=== PATIENT | female | born 1995 | race Caucasian/White ===

== ENCOUNTER 2016-03-15 05:17 | Day surgery (SDC) | payer OTHER ==
[2016-03-09 10:48] LABS: HEMATOCRIT 42.8 % (36.0-47.0); HEMOGLOBIN 14.5 g/dL (12.0-15.5); HGB HCT DIFFERENCE 0.7; MEAN CORPUSCULAR HEMOGLOBIN 32.2 pg (27.0-33.4); MEAN CORPUSCULAR HGB CONC 33.9 g/dL (32.0-36.0); MEAN CORPUSCULAR VOLUME 95 fl (80-97); RED BLOOD COUNT 4.51 10^6/uL (3.72-5.28); WHITE BLOOD COUNT 3.1 10^3/uL (4.0-10.5)
[2016-03-09 11:04] LABS: APPEARANCE,URINE SLIGHTLY-CLOUDY; BILIRUBIN,URINE NEGATIVE (NEGATIVE); GLUCOSE, URINE NEGATIVE (NEGATIVE); KETONES,URINE NEGATIVE (NEGATIVE); LEUKOCYTE ESTERASE,URINE NEGATIVE (NEGATIVE); NITRITE,URINE NEGATIVE (NEGATIVE); PROTEIN,URINE NEGATIVE (NEGATIVE); URINE SPECIFIC GRAVITY 1.009; UROBILINOGEN,URINE NEGATIVE mg/dL (<2.0)
[2016-03-09 11:22] LABS: ANION GAP 12 (5-19); BLOOD UREA NITROGEN 8 mg/dL (7-20); CALCIUM 9.1 mg/dL (8.4-10.2); CARBON DIOXIDE 27 mmol/L (22-30); CHLORIDE 104 mmol/L (98-107); CREATININE RESULT 0.55 mg/dL (0.52-1.25); GLUCOSE 49 mg/dL (75-110); POTASSIUM 3.9 mmol/L (3.6-5.0); SODIUM 143.1 mmol/L (137-145)
[~2016-03-15 05:17] MED LIST: CEFAZOLIN 2 GM/D5W RTU 2 GM/50 ML RTUPB IV PRN; CEFAZOLIN SODIUM 2 GM in DEXTROSE 5%-WATER 100 ML IV PRN; LACTATED RINGERS 1000 ML IV PRN; LIDOCAINE 0.5% INJ-PF (5 MG/ML) 50 ML SDV SUBCUT PRN
[2016-03-15] MEDS ORDERED: BUPIVACAINE HCL 0.5 % INJ/PF 30 ML SDV ONE (06:23)
[2016-03-15] MEDS ORDERED: EPINEPHRINE INJ/PF 1 MG/1 ML AMPULE ONE (06:25)
[2016-03-15] MEDS ORDERED: HYDROMORPHONE HCL INJ/PF 2 MG/ML AMPULE ONE (07:04)
[2016-03-15] MEDS ORDERED: FENTANYL CITRATE INJ/PF 100 MCG/2 ML AMPUL ONE (07:04)
[2016-03-15] MEDS ORDERED: FENTANYL CITRATE INJ/PF 250 MCG/5 ML AMPULE ONE (07:04)
[2016-03-15] MEDS ORDERED: ACETAMINOPHEN 100 ML IV ONE (07:05)
[2016-03-15] MEDS ORDERED: PROPOFOL INJ 200 MG/20 ML VIAL IV ONE (07:05)
[2016-03-15] MEDS ORDERED: MIDAZOLAM 2 MG/2 ML INJ ONE (07:05)
[2016-03-15] MEDS ORDERED: FENTANYL CITRATE INJ/PF 100 MCG/2 ML AMPUL IV PRN ×3 (10:40)
[2016-03-15] MEDS ORDERED: MEPERIDINE HCL/PF INJ 25 MG/1 ML DISP.SYRIN IV PRN (10:40)
[2016-03-15] MEDS ORDERED: MORPHINE SULFATE 10 MG/ML INJ IV PRN (10:40)
[2016-03-15] MEDS ORDERED: DIPHENHYDRAMINE HCL 50 MG/ML VIAL IV PRN (10:40)
[2016-03-15] MEDS ORDERED: OXYCODONE-ACETAMINOPHEN 5-325 MG TABLET PO PRN ×4 (10:40→11:23)
[2016-03-15] MEDS ORDERED: PROMETHAZINE HCL INJ 25 MG/1 ML VIAL IV PRN ×2 (10:40)
[2016-03-15] MEDS: FENTANYL CITRATE INJ/PF 100 MCG/2 ML AMPUL ONE ×2 (11:20→11:25)
--- NOTE | 2016-03-15 11:20 | Operative Report ---
Operative Report DATE OF SURGERY: 03/15/16 PREOPERATIVE DIAGNOSIS: Left hip acetabular labral tear and femoral acetabular impingement POSTOPERATIVE DIAGNOSIS: Same OPERATION: Left hip arthroscopy with labral repair. Femoroplasty. Fractional lengthening of the iliopsoas tendon SURGEON: LALIT CAMERON ANESTHESIA: GA TISSUE REMOVED OR ALTERED: None COMPLICATIONS: None ESTIMATED BLOOD LOSS: 15 mL INTRAOPERATIVE FINDINGS: As above PROCEDURE: Patient was brought to the operating room. The patient was induced and intubated in supine position. IV antibiotics were given prior to entering the OR. Boots were placed on both lower extremities. Peroneal post was applied and the patient was brought down to the perineal post. Both extremities were securing and the hip distraction system. At this point traction was placed in both extremities. C-arm was used to guide us and allow us to dislocate the left hip successfully. Once sedated gross traction and then gentle traction and confirm a dislocation under C-arm I started the time her the right lower extremity was taken off of gross traction. This point the left hip was prepped and draped in a normal sterile surgical fashion. Timeout was done identifying the left hip as the correct site. With the use of C-arm I placed a spinal needle and the anticipated anterolateral portal site. Once I felt that I piercing the capsule, I inflated the capsule with air using a 60 mL sterile syringe, this was showing proper placement intra-articularly. I this point I placed a nitinol wire and removed the spinal needle. I proceeded to dilate appropriately after using a scalpel to do a incision establish a my portal site. Camera then was introduced and under direct visualization proceeded to use a spinal needle to status my anterior portal site. I marked the ASIS and the midline in the midportion of the thigh to make sure that we were on the lateral aspect of the spine to avoid any neurovascular structures. Once I pursue Sloughing directly visualize a spinal needle and proceeded to use the same technique of placing nitinol wire, removed the needle and then proceeded to dilate the capsule after establishing the portal site with a scalpel. At this point I proceeded to do my arthrotomy using a retractable [place] blade. I proceeded to use switching sticks to changed my camera to the anterior portal and allowing to do complete my arthrotomy from the anterolateral portal using the retractable [place] blade. At this point once the arthrotomy was completed I proceeded to do my diagnostic arthroscopy. I immediately noticed the superior labral tear and used a probe to visualize the size. I used a [place] blade then to detach the labrum from the superior portion and clean off the rim of the acetabulum. This was done with a shaver. I used a 50 radiofrequency ablator to then clear and jigna the superior rim of the acetabulum and visualized anchor placement. I used a 90 lasso to then show a FiberWire underneath the labrum and capture on the other side. I used a clot to then grab the limbs and make sure there was no tissue bridge and then fed through a anchor. I use my guide to place position of the drill and then while drilling made sure that there was no perforation of bulging in the articulation of the acetabulum. I removed the guide and then placed my anchor securing the FiberWire and labrum onto the rim. Used a arthroscopic cutter to then leave a small tail. I repeated this step with another anchor more superior and posterior. I used approved after securing both anchors and was happy with the fixation and tightness of the repair. Remaining acetabular rim and labrum was visualized and was pristine. There is no loose bodies. No chondral delamination or lesions noted. At this point traction was let go and the head of the femur set and the acetabulum and noted good seal and no impingement of the repair. Quickly and noted to see a lesion on the femoral neck and head junction clear lesion showing the abutment of the femoral neck and head junction with the rim that was just adjacent to the labral tear. I used a oval bur then to do my femoral plasty starting at this lesion and then split out the resection both more anterior more posterior and then distal on the neck. C-arm was used to guide the amount of resection. Once I was satisfied with the resection of the lesion I then proceeded to close the capsule using the capsular closure device which punctured FiberWire through each ends of the capsule. I did it twice. I was able to then do arthroscopic knots and secure at least the more anterior portion of the capsule. Pictures were taken showing partial closure. Once I was satisfied fluid was removed and the insurance were removed and the portal sites were closed with 3-0 nylon. Xeroform 4 x 4 dressing followed by an AVD pad were applied and then Medipore tape was used to secure it. Drapes were removed and the patient was extubated and sent to PACU in stable condition.
--- NOTE | 2016-03-15 11:23 | PDOC DISCHARGE SUMMARY ---
Discharge Summary (SDC) - Discharge Final Diagnosis: Left hip femoral acetabular impingement and acetabular labral tear Date of Surgery: 03/15/16 Discharge Date: 03/15/16 Condition: Good Treatment or Instructions: Patient instructed to follow up in 10-14 days. Patient instructed to keep dressing dry clean and intact for 4 days and then allowed to remove. At that point patient can shower and apply Band-Aids as needed. Patient can do range of motion as tolerated. Avoid external rotation of the operative hip. Toe-touch weightbearing with crutches 6 weeks Patient instructed to call the office if patient develops fevers chills redness and drainage from the surgical sites. Prescriptions: Oxycodone HCl/Acetaminophen [Percocet 5-325 mg Tablet] 1 - 2 tab PO ASDIR PRN # 60 tablet PRN Reason: Respiratory Treatments at Home: Deep Breathing/Coughing Discharge Activity: No Driving - While taking narcotics, No Lifting/Push/Pulling Adaptive Devices on Discharge: Standard Walker Report the Following to Your Physician Immediately: Vomiting, Increase in Pain, Fever over 101 Degrees, Unusual Bleeding, Swelling, Warmth, Drainage-Yellow, Drainage-Green, Drainage-Foul Smelling
[2016-03-15] MEDS ORDERED: VECURONIUM BROMIDE INJ 10 MG VIAL IV ONE (11:53)
[2016-03-15] MEDS ORDERED: DEXAMETHASONE SOD PHOSPHATE INJ 4 MG/1 ML VIAL ONE (11:53)
[2016-03-15] MEDS ORDERED: LIDOCAINE 2% INJ-PF (20 MG/ML) 10 ML AMPUL ONE (11:53)
[2016-03-15] MEDS ORDERED: SUCCINYLCHOLINE CHLORIDE INJ 200 MG/10 ML VIAL ONE (11:53)
[2016-03-15] MEDS ORDERED: ONDANSETRON HCL INJ/PF 4 MG/2 ML SDV ONE ×2 (11:53→12:30)
[2016-03-15 13:42] VITALS: BP 114/75
[2016-03-15] MEDS ORDERED: ONDANSETRON HCL INJ/PF 4 MG/2 ML SDV IV SCH (18:00)
== END 2016-03-15 13:37 | disposition home or self-care (01) ==
LOC: OROUT 05:17
PROVIDERS: ATTEND Orthopaedic Surgery
PROC: 0L8K4ZZ Division of Left Hip Tendon, Percutaneous Endoscopic Approach (ICD-10-PCS; 2016-03-15)
PROC: 0SQB4ZZ Repair Left Hip Joint, Percutaneous Endoscopic Approach (ICD-10-PCS; principal; 2016-03-15 07:30)
DX: M25.852 Other specified joint disorders, left hip (principal); M24.152 Other articular cartilage disorders, left hip; M24.852 Other specific joint derangements of left hip, not elsewhere classified; M47.9 Spondylosis, unspecified; Z79.899 Other long term (current) drug therapy
CPT/HCPCS: 36415; 82962; 85027; 81025; 80048; 81001; 73501; 29914; 27299; 29916; J2250; J0690 ×2; J1100; J0171; J3010 ×2; J3490 ×2; J1170; J0330; J2405; J2704; J0131; 01210

== ENCOUNTER 2016-07-05 07:51 | Day surgery (SDC) | payer OTHER ==
[2016-06-28 09:28] LABS: ABSOLUTE EOSINOPHILS # (AUTO) 0.1 10^3/uL (0.0-0.6); ABSOLUTE LYMPHOCYTES (AUTO) 1.1 10^3/uL (0.5-4.7); ABSOLUTE MONOCYTES (AUTO) 0.5 10^3/uL (0.1-1.4); BASOPHILS % (AUTO) 0.6 % (0-2); EOSINOPHILS % (AUTO) 2.3 % (0-6); HEMATOCRIT 41.8 % (36.0-47.0); HEMOGLOBIN 14.6 g/dL (12.0-15.5); MEAN CORPUSCULAR HEMOGLOBIN 32.4 pg (27.0-33.4); MEAN CORPUSCULAR HGB CONC 34.9 g/dL (32.0-36.0); MEAN CORPUSCULAR VOLUME 93 fl (80-97); MONOCYTES % (AUTO) 9.7 % (3-13); RED CELL DISTRIBUTION WIDTH 12.6 % (11.5-14.0); SEGMENTED NEUTROPHILS % (AUTO) 63.4 % (42-78); WHITE BLOOD COUNT 4.7 10^3/uL (4.0-10.5)
[2016-06-28 09:37] LABS: APPEARANCE,URINE CLEAR; BILIRUBIN,URINE NEGATIVE (NEGATIVE); GLUCOSE, URINE NEGATIVE (NEGATIVE); KETONES,URINE NEGATIVE (NEGATIVE); LEUKOCYTE ESTERASE,URINE NEGATIVE (NEGATIVE); NITRITE,URINE NEGATIVE (NEGATIVE); PROTEIN,URINE NEGATIVE (NEGATIVE); UROBILINOGEN,URINE NEGATIVE mg/dL (<2.0)
[2016-06-28 10:01] LABS: ANION GAP 11 (5-19); BLOOD UREA NITROGEN 12 mg/dL (7-20); CALCIUM 9.3 mg/dL (8.4-10.2); CARBON DIOXIDE 27 mmol/L (22-30); CHLORIDE 105 mmol/L (98-107); GLUCOSE 84 mg/dL (75-110); POTASSIUM 4.1 mmol/L (3.6-5.0); SODIUM 142.9 mmol/L (137-145)
--- NOTE | 2016-06-28 14:25 | EKG REPORT ---
SEVERITY:- ABNORMAL ECG - SINUS RHYTHM NONSPECIFIC T ABNORMALITIES, ANTERIOR LEADS : Confirmed by: Katie Allen 28-Jun-2016 14:24:39
[~2016-07-05 07:51] MED LIST changes: +BUPIVACAINE HCL 0.5 % INJ/PF 30 ML SDV ONE; +CEFAZOLIN INJ 1 GM VIAL IV PRN; -CEFAZOLIN SODIUM 2 GM in DEXTROSE 5%-WATER 100 ML IV PRN; +EPINEPHRINE INJ/PF 1 MG/1 ML AMPULE ONE
[2016-07-05] MEDS ORDERED: SUCCINYLCHOLINE CHLORIDE INJ 200 MG/10 ML VIAL ONE (09:41)
[2016-07-05] MEDS ORDERED: LIDOCAINE 2% INJ-PF (20 MG/ML) 10 ML AMPUL ONE (09:41)
[2016-07-05] MEDS ORDERED: ONDANSETRON HCL INJ/PF 4 MG/2 ML SDV ONE (09:41)
[2016-07-05] MEDS ORDERED: FENTANYL CITRATE INJ/PF 250 MCG/5 ML AMPULE ONE (11:15)
[2016-07-05] MEDS ORDERED: MIDAZOLAM 2 MG/2 ML INJ ONE (11:16)
[2016-07-05] MEDS ORDERED: PROPOFOL INJ 200 MG/20 ML VIAL IV ONE (11:16)
[2016-07-05] MEDS ORDERED: IBUPROFEN INJ 800 MG/8 ML VIAL IV ONE (11:16)
[2016-07-05] MEDS ORDERED: PROMETHAZINE HCL INJ 25 MG/1 ML VIAL IV PRN ×2 (13:15)
[2016-07-05] MEDS ORDERED: ONDANSETRON HCL INJ/PF 4 MG/2 ML SDV IV PRN (13:15)
[2016-07-05] MEDS ORDERED: MEPERIDINE HCL/PF INJ 25 MG/1 ML DISP.SYRIN IV PRN (13:15)
[2016-07-05] MEDS ORDERED: MORPHINE SULFATE 10 MG/ML INJ IV PRN (13:15)
[2016-07-05] MEDS ORDERED: DIPHENHYDRAMINE HCL 50 MG/ML VIAL IV PRN (13:15)
[2016-07-05] MEDS ORDERED: FENTANYL CITRATE INJ/PF 100 MCG/2 ML AMPUL IV PRN ×3 (13:15)
[2016-07-05] MEDS ORDERED: OXYCODONE-ACETAMINOPHEN 5-325 MG TABLET PO PRN ×4 (13:15→14:31)
[2016-07-05] MEDS: FENTANYL CITRATE INJ/PF 100 MCG/2 ML AMPUL ONE ×2 (14:12→14:17)
--- NOTE | 2016-07-05 14:24 | PDOC DISCHARGE SUMMARY ---
Discharge Summary (SDC) - Discharge Final Diagnosis: Status post left hip arthroscopy with labral repair, femoroplasty, iliopsoas fractional lengthening Date of Surgery: 07/05/16 Discharge Date: 07/05/16 Condition: Good Treatment or Instructions: Patient instructed to follow up in 10-14 days. Patient instructed to keep dressing dry clean and intact for 4 days and then allowed to remove. At that point patient can shower and apply Band-Aids as needed. Patient can do range of motion as tolerated. Avoid external rotation of the operative hip. Nonweightbearing with crutches 6 weeks Patient instructed to call the office if patient develops fevers chills redness and drainage from the surgical sites. Prescriptions: Oxycodone HCl/Acetaminophen [Percocet 5-325 mg Tablet] 1 - 2 tab PO ASDIR PRN # 60 tablet PRN Reason: Discharge Diet: As Tolerated Respiratory Treatments at Home: Deep Breathing/Coughing Discharge Activity: No Lifting/Push/Pulling Home Care Assistance: None Needed Adaptive Devices on Discharge: Axillary Crutches Report the Following to Your Physician Immediately: Shortness of Breath, Vomiting, Increase in Pain, Fever over 101 Degrees, Unusual Bleeding, Redness, Swelling, Warmth, Drainage-Yellow, Drainage-Green, Drainage-Foul Smelling, Visual Disturbance, Seizure
--- NOTE | 2016-07-05 14:31 | Operative Report ---
Operative Report DATE OF SURGERY: 07/05/16 PREOPERATIVE DIAGNOSIS: Right hip femoral acetabular impingement and acetabular labral tear POSTOPERATIVE DIAGNOSIS: Same OPERATION: Right hip arthroscopic labral repair, femoroplasty, the iliopsoas tendon lengthening SURGEON: LALIT CAMERON ANESTHESIA: GA COMPLICATIONS: None ESTIMATED BLOOD LOSS: 15 mL INTRAOPERATIVE FINDINGS: As above PROCEDURE: Patient was brought to the operating room. The patient was induced and intubated in supine position. IV antibiotics were given prior to entering the OR. Boots were placed on both lower extremities. Peroneal post was applied and the patient was brought down to the perineal post. Both extremities were securing and the hip distraction system. At this point traction was placed in both extremities. C-arm was used to guide us and allow us to dislocate the left hip successfully. Once sedated gross traction and then gentle traction and confirm a dislocation under C-arm I started the time her the right lower extremity was taken off of gross traction. This point the left hip was prepped and draped in a normal sterile surgical fashion. Timeout was done identifying the left hip as the correct site. With the use of C-arm I placed a spinal needle and the anticipated anterolateral portal site. Once I felt that I piercing the capsule, I inflated the capsule with air using a 60 mL sterile syringe, this was showing proper placement intra-articularly. I this point I placed a nitinol wire and removed the spinal needle. I proceeded to dilate appropriately after using a scalpel to do a incision establish a my portal site. Camera then was introduced and under direct visualization proceeded to use a spinal needle to status my anterior portal site. I marked the ASIS and the midline in the midportion of the thigh to make sure that we were on the lateral aspect of the spine to avoid any neurovascular structures. Once I pursue Sloughing directly visualize a spinal needle and proceeded to use the same technique of placing nitinol wire, removed the needle and then proceeded to dilate the capsule after establishing the portal site with a scalpel. At this point I proceeded to do my arthrotomy using a retractable [place] blade. I proceeded to use switching sticks to changed my camera to the anterior portal and allowing to do complete my arthrotomy from the anterolateral portal using the retractable [place] blade. At this point once the arthrotomy was completed I proceeded to do my diagnostic arthroscopy. Under direct visualization patient noted to have a labral tear noted on MRI. We also used radiofrequency ablator to expose the iliopsoas tendon and released the tendinous portion using the ablator. I then used the [place] blade to separate and delineate the acetabular labral tear. I used a hip scorpion labral instrument to pass a FiberWire through the labrum. This was used to secure the labral tissue and it was loaded on the bio composite anchor. I use the 2.9 drill guide and placed on the rim acetabulum which I debrided with a radiofrequency ablator. I drilled into the stop portion of the drill and make sure that it did not come out of the acetabulum. I secured the push lock and suture into the predrilled hole then I used a mallet to secure the anchor. The disposable piece was removed and the remaining strands were cut once I was satisfied with the fixation. I repeated this process with my second anchor which I placed more anteriorly. I used a probe to the double check my repair and my fixation. I used radiofrequency ablator and shaver to debride any degenerative tear of the labrum. Once I was satisfied with the fixation then I had the traction released and felt that the peripheral compartment where the head was in the socket and the labral repair was not impinging or catching. I flexed the knee in 90 and then proceeded to do my femoral plasty under direct visualization. Pictures were taken showing my resection. I used a 4.0 mm bur to do the resection. Endocrine remove the hip and showed there was no impingement. Now was satisfied I left the capsule released and removed the instruments and close the 2 portal sites with 3-0 nylon. I covered the 2 incision with Xeroform 4 x 4 dressing and AVD pad followed by Medipore tape. Drapes were removed and patient was then successfully extubated and sent to PACU in stable condition.
[2016-07-05] MEDS ORDERED: HYDROMORPHONE HCL INJ/PF 2 MG/ML AMPULE ONE (14:58)
[2016-07-05] MEDS ORDERED: ONDANSETRON 4 MG TAB.RAPDIS ONE (16:10)
[2016-07-05 16:58] VITALS: BP 112/66
== END 2016-07-05 16:00 | disposition home or self-care (01) ==
LOC: OROUT 07:51
PROVIDERS: ATTEND Orthopaedic Surgery
PROC: 0L8J4ZZ Division of Right Hip Tendon, Percutaneous Endoscopic Approach (ICD-10-PCS; 2016-07-05)
PROC: 0SQ94ZZ Repair Right Hip Joint, Percutaneous Endoscopic Approach (ICD-10-PCS; 2016-07-05)
PROC: 0SQ94ZZ Repair Right Hip Joint, Percutaneous Endoscopic Approach (ICD-10-PCS; principal; 2016-07-05 10:30)
DX: M25.552 Pain in left hip (principal); M25.851 Other specified joint disorders, right hip; Z79.3 Long term (current) use of hormonal contraceptives
CPT/HCPCS: 93005; 36415; 85025; 81025; 80048; 81001; 73501; 71020; 93010; 29916; 27299; 29914; J2250; J0171; S0119; J3010 ×2; J1170; J0330; J2405; J2704; J3490; J0690; J1741; 1202